=== PATIENT | male | born 1970 | race Caucasian/White ===

== ENCOUNTER 2021-05-08 14:18 | Observation (INO) ==
[2021-05-08 16:10] VITALS: BP 132/81; PULSE 57; TEMP 97.4; O2SAT 97
[2021-05-08] MEDS ORDERED: Naloxone 0.4 MG/ML INJ IVP PRN (17:27)
== END 2021-05-08 17:42 | disposition home or self-care (01) ==
LOC: 3BNU
PROVIDERS: ADMIT Internal Medicine; ATTEND Internal Medicine